=== PATIENT | female | born 1940 | race American Indian/Alaskan Native ===

== ENCOUNTER 2017-04-17 10:52 | Outpatient (CLI) | payer MEDICARE ==
--- NOTE | 2017-04-17 15:17 | XRay Report ---
CERVICAL SPINE SERIES THREE VIEWS: 04/17/17 10:52:00 CLINICAL: Neck pain. FINDINGS: Moderate degenerative change with anterior osteophytes from C2-3 through C6-7. The largest osteophytes are at C5-6 and C6-7. Mild disc space narrowing at C5-6 and C6-7 and C3-4. Normal alignment. Normal odontoid and C1. Minimal facet joint sclerosis. Normal soft tissues and airway. IMPRESSION: Moderate degenerative disc disease from C2-3 through C6-7.
== END 2017-04-17 10:53 | disposition home or self-care (01) ==
LOC: SPVIMAG 10:52
DX: M50.31 Other cervical disc degeneration, high cervical region (principal); M50.323 Other cervical disc degeneration at C6-C7 level; M25.78 Osteophyte, vertebrae
CPT/HCPCS: 72040

== ENCOUNTER 2017-06-22 12:01 | Outpatient (CLI) | payer MEDICARE ==
--- NOTE | 2017-06-22 13:23 | XRay Report ---
Lumbar spine, 2 views: AP and lateral projections demonstrates a grade 1 anterior L4 spondylolisthesis with mild narrowing of the L4-5 interspace. Significant posterior joint sclerosis is also identified at L4-5 but there is no spondylolyses. The remaining lumbar bodies are well aligned and the vertebral height is generally unremarkable. Mild spondylosis is noted from L2-L4. Prominent anterior spondylosis is more noticed in the lower thoracic spine with mild compression changes of the lower 3 thoracic bodies. The bones are generally well mineralized. Impression: L4 spondylo-listhesis/disc compression with degenerative apophyseal joint changes. Multilevel lower thoracic compression changes with spondylosis.
== END 2017-06-22 12:02 | disposition home or self-care (01) ==
LOC: SPVIMAG 12:01
DX: M47.896 Other spondylosis, lumbar region (principal); M43.16 Spondylolisthesis, lumbar region
CPT/HCPCS: 72100

== ENCOUNTER 2017-10-05 08:53 | Outpatient (CLI) | payer BC, MEDICARE, OTHER ==
--- NOTE | 2017-10-05 10:35 | Mammography Report ---
BONE DENSITY STUDY: Postmenopausal osteoporosis. DEFINITIONS: BMD = Bone Mineral Density T-score = BMD related to mean peak bone mass of young adult (mean expressed in Standard Deviation) Z-score = Age matched BMD expressed in SD World Health Organization (WHO) Diagnostic Criteria Normal T-score > -1 SD Osteopenia T-score between -1 and -2.4 SD Osteoporosis T-score -2.5 SD or below FINDINGS: The weighted average BMD of lumbar spine L1-L4 is 1.277 with a T-score of 1.2. The weighted average BMD of the left hip is 1.080 with a T-score of 0.3. IMPRESSION: The patient's average T-score is diagnostic for normal bone density and low relative risk for fracture. NOTE: BMD is not the only risk factor for fracture; also consider factors such as the patient's age, risk of falling, previous osteoporotic fracture, family history of osteoporotic fractures, current smoker, and low body weight. Whiteside's triangle is a region of interest in femur, predominantly of trabecular bone. It is not a true anatomic site, and [facility] does not recommend its use clinically.
--- NOTE | 2017-10-05 10:40 | Mammography Report ---
BILATERAL MAMMOGRAM: FINDINGS: History of benign right breast surgery. There are scattered fibroglandular densities (approximately 25%-50% glandular). No mass, distortion, suspicious calcification, or skin change is seen. CAD was utilized. IMPRESSION: Negative mammogram. There is no mammographic evidence of malignancy. RECOMMENDATION: Follow-up per ACS guidelines. BI-RADS CATEGORY: 1 = Negative ACR BI-RADS MAMMOGRAPHIC CODES: 0 = Needs additional imaging evaluation; 1 = Negative; 2 = Benign; 3 = Probably benign; 4 = Suspicious; 5 = Malignant; 6 = Known biopsy-proven malignancy COMMENT: 1. Dense breast tissue, i.e., adenosis, fibrocystic changes, etc., may obscure an underlying neoplasm. 2. Approximately 10% of cancers are not detected with mammography. 3. A negative mammography report should not delay biopsy if a clinically suspicious mass is present. COMMENT: Patient follow-up letters are generated in [employer]
== END 2017-10-05 08:54 | disposition home or self-care (01) ==
LOC: SPVWC 08:53
PROVIDERS: ATTEND Internal Medicine
DX: Z12.31 Encounter for screening mammogram for malignant neoplasm of breast (principal); M85.80 Other specified disorders of bone density and structure, unspecified site; Z78.0 Asymptomatic menopausal state; Z98.890 Other specified postprocedural states
CPT/HCPCS: 77067; 77080